=== PATIENT | male | born 1965 ===

== ENCOUNTER 2016-10-05 11:02 | Day surgery (SDC) | payer BC, OTHER ==
[2016-09-27 11:51] VITALS: BMI 38.7
[2016-10-05 11:33] VITALS: O2SAT 99
[2016-10-05] MEDS ORDERED: Lidocaine 2% Inj (20ml) ONE (11:51)
[2016-10-05] MEDS ORDERED: Propofol 10 mg/ml Inj (20 ML) ONE ×2 (11:51→12:00)
[2016-10-05] MEDS ORDERED: Lactated Ringer's 1,000 ML IV SCH (13:00)
[2016-10-05 13:14] VITALS: RESP 16
[2016-10-05 13:46] VITALS: BP 143/80; PULSE 59; TEMP 98.4
== END 2016-10-05 11:31 | disposition home or self-care (01) ==
LOC: ENDO 11:02
PROVIDERS: ATTEND Internal Medicine
DX: Z12.11 Encounter for screening for malignant neoplasm of colon (principal); K55.20 Angiodysplasia of colon without hemorrhage; D12.3 Benign neoplasm of transverse colon; I85.10 Secondary esophageal varices without bleeding; K29.70 Gastritis, unspecified, without bleeding; K64.8 Other hemorrhoids; K74.60 Unspecified cirrhosis of liver; E11.8 Type 2 diabetes mellitus with unspecified complications; I10 Essential (primary) hypertension; B19.20 Unspecified viral hepatitis C without hepatic coma
CPT/HCPCS: 43244; 45380; 82948; 88305; J2704; J3010; J7040; J7120

== ENCOUNTER 2016-10-13 18:39 | Inpatient (IN) | payer BC, OTHER ==
[2016-10-13 19:04] VITALS: BMI 32.3
[2016-10-13] MEDS ORDERED: Sodium Chloride 0.9% 500 ML IV STA (19:18)
--- NOTE | 2016-10-13 19:21 | ED PDOC ---
Arrival/HPI - General Chief Complaint: Fever Time Seen by Provider: 10/13/16 19:02 - History of Present Illness Narrative History of Present Illness (Text): 10/13/16 19:19 51 yo male, hx of hep c, htn, dm, cirrhosis, presents wtih fever. pt reports fever since yesterday. c/o of mild trinh, otherwise no c/o of cp, abd pain, n/v/d, urinary changes. pt reports had endoscopy last . Past Medical History - Provider Review Nursing Documentation Reviewed: Yes - Infectious Disease Hx of Infectious Diseases: None - Tetanus Immunization Tetanus Immunization: Unknown - Cardiac Hx Cardiac Disorders: Yes Hx Hypertension: Yes - Pulmonary Hx Respiratory Disorders: No - Neurological Hx Neurological Disorder: No - HEENT Hx HEENT Disorder: No - Renal Hx Renal Disorder: No - Endocrine/Metabolic Hx Diabetes Mellitus Type 2: Yes - Hematological/Oncological Hx Blood Transfusions: Yes Hx Blood Transfusion Reaction: No Hx Hepatitis C: Yes - Integumentary Hx Dermatological Disorder: No - Musculoskeletal/Rheumatological Hx Musculoskeletal Disorders: No - Gastrointestinal Hx Gastrointestinal Disorders: Yes Other/Comment: cirrhosis - Genitourinary/Gynecological Hx Genitourinary Disorders: No - Psychiatric Hx Emotional Abuse: No Hx Physical Abuse: No Hx Substance Use: No - Past Surgical History Past Surgical History: Non-Contributing - Anesthesia Hx Anesthesia: No Hx Anesthesia Reactions: No Hx Malignant Hyperthermia: No - Suicidal Assessment Feels Threatened In Home Enviroment: No Family/Social History - Physician Review Nursing Documentation Reviewed: Yes Family/Social History: Unknown Family HX Smoking Status: Former Smoker Hx Alcohol Use: No Hx Substance Use: No Hx Substance Use Treatment: No Allergies/Home Meds Allergies/Adverse Reactions: Allergies No Known Allergies Allergy (Verified 11/26/14 18:14) Home Medications: Home Meds Medication Instructions Recorded Confirmed GlipiZIDE SR [Glucotrol XL] 10 mg PO DAILY 09/27/16 10/05/16 Metoprolol Succinate XL [Toprol XL] 25 mg PO DAILY 09/27/16 10/05/16 Review of Systems - Review of Systems Constitutional: Fevers Eyes: Normal ENT: Normal Respiratory: Normal Cardiovascular: Normal Gastrointestinal: Normal Genitourinary Male: Normal Musculoskeletal: Normal Skin: Normal Neurological: Headache Endocrine: Normal Hemo/Lymphatic: Normal Psychiatric: Normal Physical Exam Vital Signs Temp Pulse Resp BP Pulse Ox 10/13/16 19:04 102.3 F H 66 16 156/77 H 97 Temperature: Febrile Blood Pressure: Hypertensive Pulse: Regular Respiratory Rate: Normal Appearance: Positive for: Well-Appearing, Non-Toxic, Comfortable, Other ( ambulating, awake, alert, in nad) Pain Distress: None Mental Status: Positive for: Alert and Oriented X 3 - Systems Exam Head: Present: Atraumatic, Normocephalic Pupils: Present: PERRL Extroacular Muscles: Present: EOMI Conjunctiva: Present: Normal Mouth: Present: Moist Mucous Membranes Neck: Present: Normal Range of Motion Respiratory/Chest: Present: Clear to Auscultation, Good Air Exchange. No: Respiratory Distress, Accessory Muscle Use Cardiovascular: Present: Regular Rate and Rhythm, Normal S1, S2. No: Murmurs Abdomen: Present: Normal Bowel Sounds. No: Tenderness, Distention, Peritoneal Signs Back: Present: Normal Inspection Upper Extremity: Present: Normal Inspection. No: Cyanosis, Edema Lower Extremity: Present: Normal Inspection. No: Edema Neurological: Present: GCS=15, CN II-XII Intact, Speech Normal, Motor Func Grossly Intact, Normal Sensory Function, Normal Cerebellar Funct Skin: Present: Warm, Dry, Normal Color. No: Rashes Psychiatric: Present: Alert, Oriented x 3, Normal Insight, Normal Concentration Medical Decision Making ED Course and Treatment: 10/13/16 19:21 will look for source of infection- labs imaging reassess. 10/13/16 20:09 ekg nsr [address] t wave changes normal intervals 10/13/16 20:24 noted leukopenia, pt empircally covered, differential pending 10/13/16 21:[address] mcdonald. requests hospitalist admission. joselito accepts. pt with leukopenia, worsening thromobcytopenia, needs iv antibiotics. - Lab Interpretations Lab Results: 10/13/16 19:50 10/13/16 19:50 Lab Results 10/13/16 19:50: WBC 2.2 L*, RBC 4.18, Hgb 8.6 L, Hct 29.4 L, MCV 70.3 L, MCH 20.6 L, MCHC 29.3 L, RDW 18.5 H, Plt Count 47 L*, Neutrophils % (Manual) 73 H, Band Neutrophils % [employer], Lymphocytes % (Manual) 16 L, Monocytes % (Manual) 10 H, Eosinophils % (Manual) 1, Giant Platelets Present, Hypochromasia 2+, Anisocytosis (manual) 1+, PT 13.4 H, INR 1.24 H, APTT 26.9, pO2 158 H, VBG pH 7.40, VBG pCO2 39.0 L, VBG HCO3 24.2, VBG Total CO2 25.4, VBG O2 Sat (Calc) 99.7 H, VBG Base Excess -0.5 L, VBG Potassium 4.1, Glucose 290 H, Lactate 1.6, FiO2 21.0, Sodium 135.0, Potassium 4.0, Chloride 107.0, Carbon Dioxide 25, Anion Gap 12, BUN 16, Creatinine 0.7, Est GFR ( Amer) > 60, Est GFR (Non- Af Amer) > 60, Random Glucose 275 H, Calcium 8.6, Magnesium 1.9, Total Bilirubin 0.9, AST 36, ALT 40, Alkaline Phosphatase 45, Lactate Dehydrogenase 576, Total Creatine Kinase 74, Troponin I < 0.01, Total Protein 7.2, Albumin 3.4 , Globulin 3.8, Albumin/Globulin Ratio 0.9 L, Venous Blood Potassium 4.1, Urine Color Yellow, Urine Appearance Clear, Urine pH 6.0, Ur Specific [place] 1.025, Urine Protein Trace H, Urine Glucose (UA) 500 H, Urine Ketones Trace H, Urine Blood Negative, Urine Nitrate Negative, Urine Bilirubin Negative, Urine Urobilinogen 0.2, Ur Leukocyte Esterase Negative, Urine RBC 0 - 2, Urine WBC 0 - 2, Influenza Typ A,B (EIA) Negative for flu a/b - RAD Interpretation Radiology Orders: 10/13/16 19:18 CHEST PORTABLE [RAD] Stat - Medication Orders Current Medication Orders: Vancomycin HCl (Vancomycin 1gm) 250 mls @ 167 mls/hr IVPB STAT STA PRN Reason: Protocol Stop: 10/13/16 21:50 Discontinued Medications Acetaminophen (Tylenol 325mg Tab) 650 mg PO STAT STA Stop: 10/13/16 19:19 Last Admin: 10/13/16 20:01 Dose: 650 MG Sodium Chloride (Sodium Chloride 0.9%) 500 mls @ 999 mls/hr IV .Q31M STA Stop: 10/13/16 19:48 Last Admin: 10/13/16 20:01 Dose: 999 MLS/HR eMAR Start Stop Document 10/13/16 20:01 SF (Rec: 10/13/16 20:01 SF [id number]) Intravenous Solution Start Date 10/13/16 Start Time 19:50 End Date 10/13/16 End time 20:20 Total Infusion Time 30 Piperacillin Sod/Tazobactam Sod (Zosyn 3.375 In Ns 100ml) 100 mls @ 200 mls/hr IVPB STAT STA PRN Reason: Protocol Stop: 10/13/16 20:50 Last Admin: 10/13/16 21:00 Dose: 200 MLS/HR eMAR Start Stop Document 10/13/16 21:00 SF (Rec: 10/13/16 21:01 [id number] Intravenous Solution Start Date 10/13/16 Start Time 21:01 End Date 10/13/16 End time 21:31 Total Infusion Time 30 Disposition/Present on Arrival - Present on Arrival Any Indicators Present on Arrival: No History of DVT/PE: No History of Uncontrolled Diabetes: No Urinary Catheter: No History of Decub. Ulcer: No History Surgical Site Infection Following: None - Disposition Have Diagnosis and Disposition been Completed?: Yes Diagnosis: Sepsis, Leukopenia, Thrombocytopenia Disposition: HOSPITALIZED Disposition Time: 21:22 Condition: STABLE Discharge Instructions (ExitCare): Sepsis (ED)
[2016-10-13 20:11] LABS: VENOUS BLOOD GAS BASE EXCESS -0.5 mmol/L (0.0-2.0)
[2016-10-13 20:16] LABS: HEMATOCRIT 29.4 % (42.0-52.0); MEAN CELL VOLUME 70.3 fL (80.0-105.0); MEAN CORPUSCULAR HEMOGLOBIN 20.6 pg (25.0-35.0); MEAN CORPUSCULAR HGB CONC 29.3 g/dl (31.0-37.0); RED CELL DISTRIBUTION WIDTH 18.5 % (11.5-14.5)
[2016-10-13 20:18] LABS: ADD MANUAL DIFF? YES; URINE BILIRUBIN NEGATIVE (NEGATIVE); URINE BLOOD NEGATIVE (NEGATIVE); URINE GLUCOSE (UA) 500 mg/dL (NEGATIVE); URINE KETONE TRACE mg/dL (NEGATIVE); URINE LEUKOCYTE ESTERASE NEGATIVE Leu/uL (NEGATIVE); URINE PROTEIN TRACE mg/dL (<30 mg/dL); URINE UROBILINOGEN 0.2 E.U./dL (<1 E.U./dL)
[2016-10-13 20:20] LABS: PLATELET COUNT 47 10^3/uL (120.0-450.0); WHITE BLOOD COUNT 2.2 10^3/ul (4.5-11.0)
[2016-10-13] MEDS ORDERED: Vancomycin 1gm in NS 250ml 250 ML IVPB STA (20:21)
[2016-10-13] MEDS ORDERED: Piperacillin/Tazobact 3.375 gm 100 ML IVPB STA (20:21)
[2016-10-13 20:22] LABS: URINE APPEARANCE CLEAR (CLEAR); URINE COLOR YELLOW (YELLOW)
[2016-10-13 20:23] LABS: INR 1.24 (0.93-1.08); PARTIAL THROMBOPLASTIN TIME 26.9 Seconds (23.7-30.8)
[2016-10-13 20:24] LABS: ALB/GLOB RATIO 0.9 (1.1-1.8); ALKALINE PHOSPHATASE 45 U/L (38-133); ALT/SGPT 40 U/L (7-56); AST/SGOT 36 U/L (15-59); BILIRUBIN,TOTAL 0.9 mg/dL (0.2-1.3); BLOOD UREA NITROGEN 16 mg/dL (7-21); CALCIUM 8.6 mg/dL (8.4-10.5); CARBON DIOXIDE 25 mmol/L (21-33); CHLORIDE 101 mmol/L (98-107); GFR AFRICAN-AMERICAN > 60; GLUCOSE,RANDOM 275 mg/dL (70-110); MAGNESIUM 1.9 mg/dL (1.7-2.2); SODIUM 134 mmol/L (132-148); TOTAL PROTEIN 7.2 g/dL (5.8-8.3)
[2016-10-13 20:36] LABS: TROPONIN I < 0.01 ng/mL
[2016-10-13 20:43] LABS: URINE RBC 0 - 2 /hpf (0-2); URINE WBC 0 - 2 /hpf (0-6)
[2016-10-13 21:03] LABS: NEUTROPHIL 73 % (50.0-70.0)
[2016-10-13 21:04] LABS: ANISOCYTOSIS 1+; EOSINOPHIL 1 % (0.0-3.0)
[2016-10-13 21:05] LABS: GIANT PLATELETS PRESENT
[2016-10-13 21:07] LABS: HYPOCHROMIA 2+
--- NOTE | 2016-10-13 22:11 | CP.PCM.HP ---
<Claribel Mario - Last Filed: 10/13/16 23:29> History of Present Illness - History of Present Illness History of Present Illness: This is a 51Y Dominican M with PMH of HTN, DM, Hep C s/p tx with Harvoni, esophageal varcies, hypersplenism who came to the ED with fever for the past 3 days. Patient does not speak Moroccan. Daughter is at bedside to translate. He has been having subjective fevers and chills for the past 3 days. He denies sick contacts or recent travel. He does not have any pain, cough, n/v/d, SOB, CP , rash, lesions or sore throat. He says he has a good appetite as well and has not noticed any weight loss. It is noted that he did have an EGD and colonoscopy 1 week ago. He did have a polyp removed during the colonoscopy. PMH: HTN, DM, Hep C s/p tx with Harvoni, hypersplenism, pancytopenia, cirrhosis PSH: Banding in esophagus Home meds: Propranolol 20mg TID, Carvedilol 6.25 BID, Glipizide 10mg q daily All: NKDA SH: Former smoker. Denies EtOH or drug use, lives with family FH: Prostate Cancer Present on Admission - Present on Admission Any Indicators Present on Admission: No Review of Systems - Review of Systems Review of Systems: As per HPI Past Patient History - Infectious Disease Hx of Infectious Diseases: None - Tetanus Immunizations Tetanus Immunization: Unknown - Past Social History Smoking Status: Former Smoker Alcohol: None Drugs: Denies Home Situation {Lives}: With Family - CARDIAC Hx Cardiac Disorders: Yes Hx Hypertension: Yes - PULMONARY Hx Respiratory Disorders: No - NEUROLOGICAL Hx Neurological Disorder: No - HEENT Hx HEENT Problems: No - RENAL Hx Chronic Kidney Disease: No - ENDOCRINE/METABOLIC Hx Diabetes Mellitus Type 2: Yes - HEMATOLOGICAL/ONCOLOGICAL Hx Blood Transfusions: Yes Hx Blood Transfusion Reaction: No Hx Hepatitis C: Yes - INTEGUMENTARY Hx Dermatological Problems: No - MUSCULOSKELETAL/RHEUMATOLOGICAL Hx Musculoskeletal Disorders: No - GASTROINTESTINAL Hx Gastrointestinal Disorders: Yes Other/Comment: cirrhosis - GENITOURINARY/GYNECOLOGICAL Hx Genitourinary Disorders: No - PSYCHIATRIC Hx Emotional Abuse: No Hx Physical Abuse: No Hx Substance Use: No - SURGICAL HISTORY Hx Surgeries: Yes - ANESTHESIA Hx Anesthesia: No Hx Anesthesia Reactions: No Hx Malignant Hyperthermia: No Meds Allergies/Adverse Reactions: Allergies Allergy/AdvReac Type Severity Reaction Status Date / Time No Known Allergies Allergy Verified 11/26/14 18:14 Physical Exam - Constitutional Appears: No Acute Distress - Head Exam Head Exam: ATRAUMATIC, NORMAL INSPECTION, NORMOCEPHALIC - Eye Exam Eye Exam: Normal appearance, PERRL Pupil Exam: NORMAL ACCOMODATION, PERRL - ENT Exam ENT Exam: Mucous Membranes Moist - Neck Exam Neck exam: Positive for: Normal Inspection - Respiratory Exam Respiratory Exam: Clear to Auscultation Bilateral, NORMAL BREATHING PATTERN. absent: Rales, Rhonchi, Wheezes, Stridor - Cardiovascular Exam Cardiovascular Exam: REGULAR RHYTHM, +S1, +S2. absent: Gallop, Rubs, Systolic Murmur - GI/Abdominal Exam GI & Abdominal Exam: Distended, Normal Bowel Sounds, Organomegaly (splenomegaly ), Soft. absent: Rebound, Rigid, Tenderness - Extremities Exam Extremities exam: Positive for: normal inspection. Negative for: calf tenderness, pedal edema - Neurological Exam Neurological exam: Alert, CN II-XII Intact - Psychiatric Exam Psychiatric exam: Normal Affect, Normal Mood - Skin Skin Exam: Dry, Intact, Normal Color, Warm Results - Vital Signs Recent Vital Signs: Last Vital Signs Temp 102.3 F H 10/13/16 19:04 Pulse 66 10/13/16 19:04 Resp 16 10/13/16 19:04 BP 156/77 H 10/13/16 19:04 Pulse Ox 97 10/13/16 19:04 - Labs Result Diagrams: 10/13/16 19:50 10/13/16 19:50 Assessment & Plan - Assessment and Plan (Free Text) Assessment: This is a 51Y M with PMH of HTN, DM, Hep C, Hypersplenism, pancytopenia, cirrhosis admitted for fever. Plan: 1. Fever - CXR showed no active disease - Blood culture pending - PCT pending - U/A negative - Lactate 1.6 - Rapid flu negative - Zosyn - Tylenol prn fever 2. Pancytopenia - Can be secondary to hypersplenism - Will check iron studies and folate - Continue to monitor 3. DM - Continue glipizide - BGM ACHS - Consider adding ISS if glucose not controlled 4. HTN - Stop Carvedilol - Continue Propranolol TID - Consider increasing propranolol instead of being on 2 beta chester as out patient GI ppx: Protonix DVT ppx: SCDs Case seen, reviewed and discussed with attending Medina Mario PGY1 - Date & Time Date: 10/14/16 Time: 00:00 <Melchor Stuart P - Last Filed: 10/22/16 20:18> Results - Vital Signs Recent Vital Signs: Last Vital Signs Temp 98.3 F 10/17/16 06:00 Pulse 56 L 10/17/16 10:47 Resp 18 10/17/16 06:00 BP 156/86 H 10/17/16 10:47 Pulse Ox 100 10/17/16 06:00 - Labs Result Diagrams: 10/17/16 06:15 10/17/16 06:15 Attending/Attestation - Attestation I have personally seen and examined this patient.: Yes I have fully participated in the care of the patient.: Yes I have reviewed all pertinent clinical information: Yes
[2016-10-13 22:42] LABS: IRON 28 ug/dL (45-180)
[2016-10-14] MEDS: Piperacillin/Tazobact 3.375 gm 100 ML IVPB SCH ×4 (02:24→18:30)
[2016-10-14] MEDS ORDERED: Pantoprazole 40 mg EC Tab PO SCH (07:30)
[2016-10-14] MEDS ORDERED: GlipiZIDE 10 mg SR Tab PO SCH (08:00)
[2016-10-14 09:44] LABS: HEMATOCRIT 30.3 % (42.0-52.0); MEAN CELL VOLUME 70.8 fL (80.0-105.0); MEAN CORPUSCULAR HGB CONC 29.7 g/dl (31.0-37.0); PLATELET COUNT 44 10^3/uL (120.0-450.0); RED CELL DISTRIBUTION WIDTH 18.8 % (11.5-14.5)
[2016-10-14 09:50] LABS: WHITE BLOOD COUNT 2.2 10^3/ul (4.5-11.0)
[2016-10-14 09:56] LABS: ALB/GLOB RATIO 0.9 (1.1-1.8); ALKALINE PHOSPHATASE 52 U/L (38-133); ALT/SGPT 37 U/L (7-56); AST/SGOT 43 U/L (15-59); CALCIUM 8.4 mg/dL (8.4-10.5); CARBON DIOXIDE 25 mmol/L (21-33); CHLORIDE 102 mmol/L (95-110); GFR AFRICAN-AMERICAN > 60; GLUCOSE,RANDOM 237 mg/dL (70-110); SODIUM 135 mmol/L (132-148); TOTAL PROTEIN 6.9 g/dL (5.8-8.3)
[2016-10-14 10:11] LABS: BLOOD UREA NITROGEN 11 mg/dL (7-21)
--- NOTE | 2016-10-14 10:41 | RAD ---
HISTORY: fever COMPARISON: Comparison chest 07/19/2016 FINDINGS: LUNGS: No active pulmonary disease. PLEURA: No significant pleural effusion identified, no pneumothorax apparent. CARDIOVASCULAR: Mild cardiomegaly with left ventricular configuration. OSSEOUS STRUCTURES: No significant abnormalities. VISUALIZED UPPER ABDOMEN: Normal. OTHER FINDINGS: None. IMPRESSION: No acute infiltrates. Mild cardiomegaly with left ventricular configuration. .
[2016-10-14] MEDS: Vancomycin 1gm in NS 250ml 250 ML IVPB SCH ×2 (10:55→21:54)
[2016-10-14 11:02] LABS: FOLATE 13.2 ng/mL
--- NOTE | 2016-10-14 11:30 | CARD ---
APPROVED REPORT EKG Measurement Heart [id number] <Conclusion> Normal sinus rhythm Normal ECG
[2016-10-14 11:35] LABS: ADD MANUAL DIFF? YES
[2016-10-14 11:37] LABS: BAND 2 % (0-2); HYPOCHROMIA 1+; NEUTROPHIL 74 % (50.0-70.0); PLATELET ESTIMATE LOW (NORMAL)
[2016-10-14 11:38] LABS: ANISOCYTOSIS 1+; LARGE PLATELETS PRESENT
[2016-10-14 11:39] LABS: GRAN # 1.67 (1.4-6.5)
--- NOTE | 2016-10-14 14:41 | CP.PCM.PN ---
<Nnamdi Christy - Last Filed: 10/14/16 14:37> Subjective - Date & Time of Evaluation Date of Evaluation: 10/14/16 Time of Evaluation: 08:30 - Subjective Subjective: Dr. Christy PGY 1 Hospitalist Note Patient seen and evaluated at bedside with family present. The patient states he has had a fever for about 3 days and has been waking with sweats in the morning. He denies any chest pain, SOB, nausea, vomiting, diarrhea, or abdominal pain. Per nursing, the patient had a fever early this morning. Objective - Vital Signs/Intake and Output Vital Signs (last 24 hours): Temp Pulse Resp BP Pulse Ox 99.6 F 74 20 151/72 H 97 10/14/16 10:57 10/14/16 06:00 10/14/16 06:00 10/14/16 10:55 10/14/16 06:00 Intake and Output: 10/14/16 10/14/16 06:59 18:59 Intake Total 120 Balance 120 - Medications Medications: Current Medications Acetaminophen (Tylenol 325mg Tab) 650 mg PO Q6H PRN PRN Reason: Pain Last Admin: 10/14/16 04:31 Dose: 650 mg Piperacillin Sod/Tazobactam Sod (Zosyn 3.375 In Ns 100ml) 100 mls @ 200 mls/hr IVPB Q6 PRAVEENA PRN Reason: Protocol Stop: 10/14/16 18:29 Last Admin: 10/14/16 12:54 Dose: 200 mls/hr Vancomycin HCl (Vancomycin 1gm) 250 mls @ 167 mls/hr IVPB Q12H PRAVEENA PRN Reason: Protocol Last Admin: 10/14/16 10:55 Dose: 167 mls/hr Insulin Human Lispro (Humalog Low) 0 units SC ACHS PRAVEENA PRN Reason: Protocol Pantoprazole Sodium (Protonix Ec Tab) 40 mg PO ACB PRAVEENA Last Admin: 10/14/16 08:09 Dose: 40 mg Propranolol HCl (Inderal) 20 mg PO TID PRAVEENA Last Admin: 10/14/16 10:55 Dose: 20 mg - Labs Labs: 10/14/16 09:38 10/14/16 09:38 PT 13.4 Seconds (9.9-11.8) H 10/13/16 19:50 INR 1.24 (0.93-1.08) H 10/13/16 19:50 APTT 26.9 Seconds (23.7-30.8) 10/13/16 19:50 - Constitutional Appears: Non-toxic, No Acute Distress - Head Exam Head Exam: ATRAUMATIC, NORMOCEPHALIC - Eye Exam Eye Exam: EOMI, Normal appearance, PERRL Pupil Exam: NORMAL ACCOMODATION, PERRL - ENT Exam ENT Exam: Mucous Membranes Moist, Normal Oropharynx - Neck Exam Neck Exam: Normal Inspection - Respiratory Exam Respiratory Exam: Clear to Ausculation Bilateral, NORMAL BREATHING PATTERN. absent: Rales, Rhonchi, Wheezes - Cardiovascular Exam Cardiovascular Exam: REGULAR RHYTHM, +S1, +S2. absent: Gallop, Rubs, Murmur - GI/Abdominal Exam GI & Abdominal Exam: Soft, Normal Bowel Sounds. absent: Tenderness - Extremities Exam Extremities Exam: Normal Inspection. absent: Pedal Edema, Tenderness - Back Exam Back Exam: NORMAL INSPECTION. absent: tenderness - Neurological Exam Neurological Exam: Alert, Awake, CN II-XII Intact, Oriented x3 - Psychiatric Exam Psychiatric exam: Normal Affect, Normal Mood - Skin Skin Exam: Dry, Intact, Normal Color Assessment and Plan - Assessment and Plan (Free Text) Assessment: 51 y/o Brazilian M with PMH of HTN, DM, Hep C, Hypersplenism, pancytopenia, cirrhosis admitted for fever and pancytopenia. Plan: 1. Fever * ID consulted, help appreciated * CXR showed no active disease * Lactate 1.6 * Rapid flu negative * Procal wnl * F/U blood and urine cultres * Started on Vancomycin and Zosyn * Tylenol prn fever 2. Pancytopenia * Possibly secondary to hypersplenism * Iron studies show Iron 28, TIBC 374, 7% sat * Folate- 13.2 * Continue to monitor 3. DM * Hold home glipizide * Accuchecks ACHS * Sliding scale insulin * F/U A1C 4. HTN * BP wnl * Home Carvedilol D/C's * Continue Propranolol TID * Consider increasing propranolol instead of being on 2 beta chester as out patient GI ppx: Protonix DVT ppx: SCDs Case seen, reviewed and discussed with attending <Ubaldo Lyles - Last Filed: 10/14/16 15:33> Objective - Vital Signs/Intake and Output Vital Signs (last 24 hours): Temp Pulse Resp BP Pulse Ox 99.6 F 74 20 151/72 H 97 10/14/16 10:57 10/14/16 06:00 10/14/16 06:00 10/14/16 10:55 10/14/16 06:00 Intake and Output: 10/14/16 10/14/16 06:59 18:59 Intake Total 120 Balance 120 - Medications Medications: Current Medications Acetaminophen (Tylenol 325mg Tab) 650 mg PO Q6H PRN PRN Reason: Pain Last Admin: 10/14/16 04:31 Dose: 650 mg Piperacillin Sod/Tazobactam Sod (Zosyn 3.375 In Ns 100ml) 100 mls @ 200 mls/hr IVPB Q6 PRAVEENA PRN Reason: Protocol Stop: 10/14/16 18:29 Last Admin: 10/14/16 12:54 Dose: 200 mls/hr Vancomycin HCl (Vancomycin 1gm) 250 mls @ 167 mls/hr IVPB Q12H PRAVEENA PRN Reason: Protocol Last Admin: 10/14/16 10:55 Dose: 167 mls/hr Insulin Human Lispro (Humalog Low) 0 units SC ACHS PRAVEENA PRN Reason: Protocol Pantoprazole Sodium (Protonix Ec Tab) 40 mg PO ACB PRAVEENA Last Admin: 10/14/16 08:09 Dose: 40 mg Propranolol HCl (Inderal) 20 mg PO TID PRAVEENA Last Admin: 10/14/16 10:55 Dose: 20 mg - Labs Labs: 10/14/16 09:38 10/14/16 09:38 PT 13.4 Seconds (9.9-11.8) H 10/13/16 19:50 INR 1.24 (0.93-1.08) H 10/13/16 19:50 APTT 26.9 Seconds (23.7-30.8) 10/13/16 19:50 Attending/Attestation - Attestation I have personally seen and examined this patient.: Yes I have fully participated in the care of the patient.: Yes I have reviewed all pertinent clinical information, including history, physical exam and plan: Yes Notes (Text): 10/14/16 15:24 51 year old male with past medical history of HTN, DM, hepatitis C, cirrhosis, esophageal varices and pancytopenia who presented with complaint of fever. CXR and UA are negative. Procalcitonin is normal. Ucx/Bcx are pending. He is on iv antibiotics. Tmax was 102.9. ID evaluation was requested. He has pancytopenia and iron deficiency anemia. May need iron supplementation. Will continue to monitor closely. Will review his recent EGD/colonoscopy. Continue with insulin ss for diabetes. A1c level is pending. He is on propranolol for hypertension. Ubaldo Lyles MD Hospitalist.
[2016-10-14] MEDS: Insulin Lispro (humaLOG) LOW Coverage SC SCH ×2 (16:30→22:00)
--- NOTE | 2016-10-14 18:27 | CP.PCM.CON ---
History of Present Illness - History of Present Illness History of Present Illness: Infectious Disease Consultation: October 14, 2016 51 yo [place] male with Hypertension, Diabetes Mellitus, Hepatitis C, Esophageal Varices, and hypersplenism with fevers for the past 3 days. Subjective fevers and chills. No other specific issues. Fever of 102.9 F here in hospital. PMHx: Hypertension, Diabetes Mellitus, Heptitis C treated with Harvoni, hypersplenism , pancytopenia, cirrhosis PSHx: Banding in esophagus Allergies: NKDA Social Hx: Ex-smoker. No EtOH or illicit drug use history. lives with family Active Medications Acetaminophen (Tylenol 325mg Tab) 650 mg PO Q6H PRN PRN Reason: Pain Last Admin: 10/14/16 04:31 Dose: 650 mg Famotidine (Pepcid) 20 mg PO 1000,2200 [facility] Piperacillin Sod/Tazobactam Sod (Zosyn 3.375 In Ns 100ml) 100 mls @ 200 mls/hr IVPB Q6 [facility] PRN Reason: Protocol Stop: 10/14/16 18:29 Last Admin: 10/14/16 12:54 Dose: 200 mls/hr Vancomycin HCl (Vancomycin 1gm) 250 mls @ 167 mls/hr IVPB Q12H [facility] PRN Reason: Protocol Last Admin: 10/14/16 10:55 Dose: 167 mls/hr Insulin Human Lispro (Humalog Low) 0 units SC ACHS [facility] PRN Reason: Protocol Last Admin: 10/14/16 16:30 Dose: 5 units Propranolol HCl (Inderal) 20 mg PO TID [facility] Last Admin: 10/14/16 14:36 Dose: 20 mg Family Hx: Prostate cancer ROS: Subjective fevers, actual fever of 102.9. No cough, chest pain, abdominal pain , melena, hematuria, hematemesis, hematochezia, depression, anxiety, loss of consciousness. Past Patient History - Infectious Disease Hx of Infectious Diseases: None - Tetanus Immunizations Tetanus Immunization: Unknown - Past Social History Smoking Status: Never Smoked - CARDIAC Hx Cardiac Disorders: Yes Hx Hypertension: Yes - PULMONARY Hx Respiratory Disorders: No - NEUROLOGICAL Hx Neurological Disorder: No - HEENT Hx HEENT Problems: No - RENAL Hx Chronic Kidney Disease: No - ENDOCRINE/METABOLIC Hx Diabetes Mellitus Type 2: Yes - HEMATOLOGICAL/ONCOLOGICAL Hx Blood Transfusions: Yes Hx Blood Transfusion Reaction: No Hx Hepatitis C: Yes - INTEGUMENTARY Hx Dermatological Problems: No - MUSCULOSKELETAL/RHEUMATOLOGICAL Hx Falls: No - GASTROINTESTINAL Hx Gastrointestinal Disorders: Yes Other/Comment: cirrhosis - GENITOURINARY/GYNECOLOGICAL Hx Genitourinary Disorders: No - PSYCHIATRIC Hx Emotional Abuse: No Hx Physical Abuse: No Hx Substance Use: No - SURGICAL HISTORY Hx Surgeries: Yes - ANESTHESIA Hx Anesthesia: No Hx Anesthesia Reactions: No Hx Malignant Hyperthermia: No Meds Allergies/Adverse Reactions: Allergies Allergy/AdvReac Type Severity Reaction Status Date / Time No Known Allergies Allergy Verified 11/26/14 18:14 - Medications Medications: Current Medications Acetaminophen (Tylenol 325mg Tab) 650 mg PO Q6H PRN PRN Reason: Pain Last Admin: 10/14/16 04:31 Dose: 650 mg Famotidine (Pepcid) 20 mg PO 1000,2200 [facility] Piperacillin Sod/Tazobactam Sod (Zosyn 3.375 In Ns 100ml) 100 mls @ 200 mls/hr IVPB Q6 [facility] PRN Reason: Protocol Stop: 10/14/16 18:29 Last Admin: 10/14/16 12:54 Dose: 200 mls/hr Vancomycin HCl (Vancomycin 1gm) 250 mls @ 167 mls/hr IVPB Q12H [facility] PRN Reason: Protocol Last Admin: 10/14/16 10:55 Dose: 167 mls/hr Insulin Human Lispro (Humalog Low) 0 units SC ACHS [facility] PRN Reason: Protocol Last Admin: 10/14/16 16:30 Dose: 5 units Propranolol HCl (Inderal) 20 mg PO TID [facility] Last Admin: 10/14/16 14:36 Dose: 20 mg Physical Exam - Constitutional Appears: No Acute Distress, Chronically Ill - Head Exam Head Exam: ATRAUMATIC, NORMOCEPHALIC - Eye Exam Eye Exam: EOMI, PERRL Pupil Exam: NORMAL ACCOMODATION, PERRL - ENT Exam ENT Exam: Mucous Membranes Moist, Normal External Ear Exam, TM's Normal Bilaterally - Neck Exam Neck exam: Positive for: Full Rom, Normal Inspection - Respiratory Exam Respiratory Exam: Clear to Auscultation Bilateral, NORMAL BREATHING PATTERN. absent: Rales, Rhonchi, Wheezes - Cardiovascular Exam Cardiovascular Exam: REGULAR RHYTHM, RRR, +S1, +S2 - GI/Abdominal Exam GI & Abdominal Exam: Distended, Normal Bowel Sounds, Organomegaly, Soft. absent : Tenderness Additional comments: Splenomegaly. - Extremities Exam Extremities exam: Positive for: full ROM, normal inspection - Neurological Exam Neurological exam: Alert, CN II-XII Intact, Oriented x3 - Psychiatric Exam Psychiatric exam: Normal Affect, Normal Mood - Skin Skin Exam: Dry, Intact, Normal Color Results - Vital Signs Recent Vital Signs: Last Vital Signs Temp 99.6 F 10/14/16 10:57 Pulse 74 10/14/16 06:00 Resp 20 10/14/16 06:00 BP 151/72 H 10/14/16 10:55 Pulse Ox 97 10/14/16 06:00 - Labs Result Diagrams: 10/14/16 09:38 10/14/16 09:38 Labs: Laboratory Results - last 24 hr 10/13/16 10/13/16 10/14/16 22:30 23:15 09:38 WBC 2.2 L* RBC 4.28 Hgb 9.0 L Hct 30.3 L MCV 70.8 L MCH 21.0 L MCHC 29.7 L RDW 18.8 H Plt Count 44 L* Gran % Elevator Worker Lymph % (Auto) Elevator Worker Morton % (Auto) Elevator Worker Eos % (Auto) Elevator Worker Baso % (Auto) Elevator Worker Gran # 1.67 Lymph # Elevator Worker Morton # Elevator Worker Eos # Elevator Worker Baso # Elevator Worker Neutrophils % (Manual) 74 H Band Neutrophils % 2 Lymphocytes % (Manual) 18 L Monocytes % (Manual) 6 Platelet Evaluation Low Large Platelets Present Hypochromasia 1+ Anisocytosis (manual) 1+ Sodium 135 Potassium 4.0 Chloride 102 Carbon Dioxide 25 Anion Gap 12 BUN 11 Creatinine 0.6 Est GFR ( Amer) > 60 Est GFR (Non-Af Amer) > 60 POC Glucose (mg/dL) 173 H Random Glucose 237 H Calcium 8.4 Total Bilirubin 1.0 AST 43 ALT 37 Alkaline Phosphatase 52 Total Protein 6.9 Albumin 3.3 Globulin 3.6 Albumin/Globulin Ratio 0.9 L Procalcitonin 0.08 L Influenza Typ A,B (EIA) Negative for flu a/b Assessment & Plan - Assessment and Plan (Free Text) Assessment: 51 yo [place] male with extensive past medical history with hypertension, diabetes mellitus, Heptitis C, hypersplenism, pancytopenia, and cirrhosis presenting with fevers. Fevers up to 102.9 F. Chest X-ray negative, Urinalysis negative, and negative rapid flu assay. Patient started on Vancomycin and Zosyn at this time. King cultures sent. Patient is more vulnerable given his liver cirrhosis, poorly controlled diabetes mellitus, and obesity. Continue antibiotics and await cultures. Cannot rule out a viral syndrome. Thank you for allowing me to participate in the care of the patient, we will follow with you.
[2016-10-15] MEDS: Piperacillin/Tazobact 3.375 gm 100 ML IVPB SCH ×4 (00:07→17:00)
[2016-10-15 07:35] LABS: HEMATOCRIT 28.8 % (42.0-52.0); MEAN CELL VOLUME 70.4 fL (80.0-105.0); MEAN CORPUSCULAR HEMOGLOBIN 21.3 pg (25.0-35.0); MEAN CORPUSCULAR HGB CONC 30.2 g/dl (31.0-37.0); PLATELET COUNT 42 10^3/uL (120.0-450.0); RED CELL DISTRIBUTION WIDTH 19.5 % (11.5-14.5)
[2016-10-15 07:55] LABS: ADD MANUAL DIFF? YES; ALB/GLOB RATIO 0.9 (1.1-1.8); ALKALINE PHOSPHATASE 51 U/L (38-133); ALT/SGPT 43 U/L (7-56); AST/SGOT 42 U/L (15-59); BLOOD UREA NITROGEN 13 mg/dL (7-21); CALCIUM 7.8 mg/dL (8.4-10.5); CARBON DIOXIDE 24 mmol/L (21-33); CHLORIDE 104 mmol/L (98-107); GFR AFRICAN-AMERICAN > 60; GLUCOSE,RANDOM 255 mg/dL (70-110); POTASSIUM 3.7 mmol/L (3.6-5.0); SODIUM 134 mmol/L (132-148); TOTAL PROTEIN 6.7 g/dL (5.8-8.3); WHITE BLOOD COUNT 2.2 10^3/ul (4.5-11.0)
[2016-10-15] MEDS: Insulin Lispro (humaLOG) LOW Coverage SC SCH ×5 (08:25→22:02)
[2016-10-15 08:50] LABS: BAND 3 % (0-2); GRAN # 1.41 (1.4-6.5); NEUTROPHIL 61 % (50.0-70.0)
[2016-10-15 08:51] LABS: LARGE PLATELETS PRESENT; PLATELET ESTIMATE LOW (NORMAL)
[2016-10-15] MEDS: Vancomycin 1gm in NS 250ml 250 ML IVPB SCH (08:59)
--- NOTE | 2016-10-15 15:10 | CP.PCM.PN ---
Subjective - Date & Time of Evaluation Date of Evaluation: 10/15/16 Time of Evaluation: 13:30 - Subjective Subjective: Infectious Disease Follow Up: October 15, 2016 51 yo [place] male with Hypertension, Diabetes Mellitus, Hepatitis C, Esophageal Varices, and hypersplenism with fevers for the past 3 days. Subjective fevers and chills. No other specific issues. Fever as high as 102.9 F here in hospital during the past 24 hours. Cultures negative to date. He makes no other complaints. Objective - Vital Signs/Intake and Output Vital Signs (last 24 hours): Temp Pulse Resp BP Pulse Ox 100.5 F H 59 L 20 145/77 97 10/15/16 14:14 10/15/16 14:13 10/14/16 06:00 10/15/16 14:13 10/14/16 06:00 Intake and Output: 10/15/16 10/15/16 06:59 18:59 Intake Total 750 Balance 750 - Medications Medications: Current Medications Acetaminophen (Tylenol 325mg Tab) 650 mg PO Q6H PRN PRN Reason: Pain Last Admin: 10/15/16 14:14 Dose: 650 mg Famotidine (Pepcid) 20 mg PO 1000,2200 [facility] Last Admin: 10/15/16 09:00 Dose: 20 mg Vancomycin HCl (Vancomycin 1gm) 250 mls @ 167 mls/hr IVPB Q12H [facility] PRN Reason: Protocol Last Admin: 10/15/16 08:59 Dose: 167 mls/hr Piperacillin Sod/Tazobactam Sod (Zosyn 3.375 In Ns 100ml) 100 mls @ 200 mls/hr IVPB Q6 [facility] PRN Reason: Protocol Stop: 10/20/16 06:29 Last Admin: 10/15/16 12:14 Dose: 200 mls/hr Insulin Human Lispro (Humalog Low) 0 units SC ACHS [facility] PRN Reason: Protocol Last Admin: 10/15/16 13:04 Dose: 3 units Propranolol HCl (Inderal) 20 mg PO TID [facility] Last Admin: 10/15/16 14:13 Dose: Not Given - Labs Labs: 10/15/16 07:05 10/15/16 07:05 PT 13.4 Seconds (9.9-11.8) H 10/13/16 19:50 INR 1.24 (0.93-1.08) H 10/13/16 19:50 APTT 26.9 Seconds (23.7-30.8) 10/13/16 19:50 - Constitutional Appears: No Acute Distress, Chronically Ill - Head Exam Head Exam: ATRAUMATIC, NORMOCEPHALIC - Eye Exam Eye Exam: EOMI, PERRL Pupil Exam: NORMAL ACCOMODATION, PERRL - ENT Exam ENT Exam: Mucous Membranes Moist, Normal External Ear Exam, TM's Normal Bilaterally - Neck Exam Neck Exam: Full ROM, Normal Inspection - Respiratory Exam Respiratory Exam: Clear to Ausculation Bilateral, NORMAL BREATHING PATTERN. absent: Rales, Rhonchi, Wheezes - Cardiovascular Exam Cardiovascular Exam: REGULAR RHYTHM, RRR, +S1, +S2 - GI/Abdominal Exam GI & Abdominal Exam: Distended, Soft, Normal Bowel Sounds. absent: Tenderness Additional comments: Splenomegaly. - Extremities Exam Extremities Exam: Full ROM, Normal Inspection - Neurological Exam Neurological Exam: Alert, Awake, CN II-XII Intact, Oriented x3 - Psychiatric Exam Psychiatric exam: Normal Affect, Normal Mood - Skin Skin Exam: Intact, Normal Color Assessment and Plan - Assessment and Plan (Free Text) Assessment: 51 yo [place] male with extensive past medical history with hypertension, diabetes mellitus, Heptitis C, hypersplenism, pancytopenia, and cirrhosis presenting with fevers. Fevers up to 102.9 F. Chest X-ray negative, Urinalysis negative, and negative rapid flu assay. Patient started on Vancomycin and Zosyn at this time. King cultures sent. Patient is more vulnerable given his liver cirrhosis, poorly controlled diabetes mellitus, and obesity. Continue antibiotics and await cultures. Cannot rule out a viral syndrome. Still with fevers withing the past 24 hours. Thank you for allowing me to participate in the care of the patient, we will follow with you.
[2016-10-15] MEDS: POLYETHYLENE GLYCOL 3350 17 GM/Dose PACKET PO SCH ×2 (16:48→20:14)
--- NOTE | 2016-10-15 23:46 | CP.PCM.PN ---
<TimiEmilie - Last Filed: 10/16/16 06:03> Subjective - Date & Time of Evaluation Date of Evaluation: 10/15/16 Time of Evaluation: 08:15 - Subjective Subjective: Pt seen and evaluated at bedside. Pt denies complaints but has not had bowel movement in days. Intermittent fevers throughout the day, T max 102.5 in the AM. Objective - Vital Signs/Intake and Output Vital Signs (last 24 hours): Temp Pulse Resp BP Pulse Ox 100.5 F H 60 20 132/69 97 10/15/16 14:14 10/15/16 17:02 10/14/16 06:00 10/15/16 17:02 10/14/16 06:00 Intake and Output: 10/15/16 10/16/16 18:59 06:59 Intake Total 360 Output Total 2 Balance 358 - Medications Medications: Current Medications Acetaminophen (Tylenol 325mg Tab) 650 mg PO Q6H PRN PRN Reason: Pain Last Admin: 10/15/16 14:14 Dose: 650 mg Docusate Sodium (Colace) 100 mg PO BID [facility] Last Admin: 10/15/16 20:14 Dose: 100 mg Famotidine (Pepcid) 20 mg PO 1000,2200 [facility] Last Admin: 10/15/16 09:00 Dose: 20 mg Vancomycin HCl (Vancomycin 1gm) 250 mls @ 167 mls/hr IVPB Q12H [facility] PRN Reason: Protocol Last Admin: 10/15/16 08:59 Dose: 167 mls/hr Piperacillin Sod/Tazobactam Sod (Zosyn 3.375 In Ns 100ml) 100 mls @ 200 mls/hr IVPB Q6 [facility] PRN Reason: Protocol Stop: 10/20/16 06:29 Last Admin: 10/15/16 17:00 Dose: 200 mls/hr Insulin Human Lispro (Humalog Low) 0 units SC ACHS [facility] PRN Reason: Protocol Last Admin: 10/15/16 22:02 Dose: Not Given Polyethylene Glycol (Miralax) 17 gm PO DAILY [facility] Last Admin: 10/15/16 20:14 Dose: 17 gm Propranolol HCl (Inderal) 20 mg PO TID [facility] Last Admin: 10/15/16 17:02 Dose: 20 mg - Labs Labs: 10/15/16 07:05 10/15/16 07:05 PT 13.4 Seconds (9.9-11.8) H 10/13/16 19:50 INR 1.24 (0.93-1.08) H 10/13/16 19:50 APTT 26.9 Seconds (23.7-30.8) 10/13/16 19:50 - Additional Findings Additional findings: - Constitutional Appears: Non-toxic, No Acute Distress - Head Exam Head Exam: ATRAUMATIC, NORMOCEPHALIC - Eye Exam Eye Exam: EOMI, PERRL - ENT Exam ENT Exam: Mucous Membranes Moist, Normal Oropharynx - Neck Exam Neck Exam: Normal Inspection - Respiratory Exam Respiratory Exam: Clear to Ausculation Bilateral, NORMAL BREATHING PATTERN. absent: Rales, Rhonchi, Wheezes - Cardiovascular Exam Cardiovascular Exam: REGULAR RHYTHM, +S1, +S2. absent: Gallop, Rubs, Murmur - GI/Abdominal Exam GI & Abdominal Exam: Soft, Normal Bowel Sounds. absent: Tenderness - Extremities Exam Extremities Exam: Normal Inspection. absent: Pedal Edema, Tenderness - Back Exam Back Exam: NORMAL INSPECTION. absent: tenderness - Neurological Exam Neurological Exam: Alert, Awake - Psychiatric Exam Psychiatric exam: Normal Affect, Normal Mood - Skin Skin Exam: Dry, Intact, Normal Color Assessment and Plan - Assessment and Plan (Free Text) Plan: 51 y/o Syrian M with PMH of HTN, DM, Hep C, Hypersplenism, pancytopenia, cirrhosis admitted for fever and pancytopenia. Plan: 1. Fever * ID consulted, help appreciated * CXR showed no active disease * Lactate 1.6 * Rapid flu negative * Procal wnl * blood negative at 24 hours and urine cultres negative Vancomycin and Zosyn * Tylenol prn fever 2. Pancytopenia * Possibly secondary to hypersplenism * Iron studies show Iron 28, TIBC 374, 7% sat * Folate- 13.2 * Continue to monitor 3. DM * Hold home glipizide * Accuchecks ACHS * Sliding scale insulin * F/U A1C 4. HTN * BP wnl * Home Carvedilol D/C's * Continue Propranolol TID * Consider increasing propranolol instead of being on 2 beta chester as out patient GI ppx: Protonix DVT ppx: SCDs <Ubaldo Lyles - Last Filed: 10/16/16 12:21> Objective - Vital Signs/Intake and Output Vital Signs (last 24 hours): Temp Pulse Resp BP Pulse Ox 98.9 F 60 17 145/95 H 99 10/16/16 06:00 10/16/16 09:47 10/16/16 06:00 10/16/16 09:47 10/16/16 06:00 Intake and Output: 10/16/16 10/16/16 06:59 18:59 Intake Total 360 Output Total 2 Balance 358 - Medications Medications: Current Medications Acetaminophen (Tylenol 325mg Tab) 650 mg PO Q6H PRN PRN Reason: Pain Last Admin: 10/15/16 14:14 Dose: 650 mg Docusate Sodium (Colace) 100 mg PO BID [facility] Last Admin: 10/16/16 09:47 Dose: 100 mg Famotidine (Pepcid) 20 mg PO 1000,2200 [facility] [place] Last Admin: 10/16/16 09:47 Dose: 20 mg Vancomycin HCl (Vancomycin 1gm) 250 mls @ 167 mls/hr IVPB Q12H [facility] PRN Reason: Protocol Last Admin: 10/16/16 09:46 Dose: 167 mls/hr Piperacillin Sod/Tazobactam Sod (Zosyn 3.375 In Ns 100ml) 100 mls @ 200 mls/hr IVPB Q6 [facility] PRN Reason: Protocol Stop: 10/20/16 06:29 Last Admin: 10/16/16 11:26 Dose: 200 mls/hr Insulin Human Lispro (Humalog Low) 0 units SC ACHS [facility] PRN Reason: Protocol Last Admin: 10/16/16 11:52 Dose: 4 units Polyethylene Glycol (Miralax) 17 gm PO DAILY [facility] Last Admin: 10/16/16 09:48 Dose: 17 gm Propranolol HCl (Inderal) 20 mg PO TID [facility] [place] Last Admin: 10/16/16 09:47 Dose: 20 mg - Labs Labs: 10/16/16 06:50 10/16/16 06:50 PT 13.4 Seconds (9.9-11.8) H 10/13/16 19:50 INR 1.24 (0.93-1.08) H 10/13/16 19:50 APTT 26.9 Seconds (23.7-30.8) 04/14/17 19:50 Attending/Attestation - Attestation I have personally seen and examined this patient.: Yes I have fully participated in the care of the patient.: Yes I have reviewed all pertinent clinical information, including history, physical exam and plan: Yes Notes (Text): 10/15/16 51 year old male with past medical history of HTN, DM, hepatitis C, cirrhosis, esophageal varices and pancytopenia who presented with complaint of fever. Workup including CXR, UA, procalcitonin and blood cultures to date are negative. He is on broad spectrum antibiotics and ID is following. He has pancytopenia and iron deficiency anemia. May need iron supplementation. Will continue to monitor closely. Will need to review his recent EGD/ colonoscopy. Continue with insulin ss for diabetes. A1c level is pending. He is on propranolol for hypertension. Colace and miralax are added for complaint of constipation. Ubaldo Lyles MD Hospitalist.
[2016-10-16 07:16] LABS: EOS % 0.8 % (1.5-5.0); GRAN # 1.27 (1.4-6.5); GRAN % 53.9 % (50.0-68.0); HEMATOCRIT 28.9 % (42.0-52.0); LYMPH # 0.7 (1.2-3.4); LYMPH % 30.9 % (22.0-35.0); MEAN CELL VOLUME 69.6 fL (80.0-105.0); MEAN CORPUSCULAR HEMOGLOBIN 21.2 pg (25.0-35.0); MEAN CORPUSCULAR HGB CONC 30.4 g/dl (31.0-37.0); MONO # 0.3 (0.1-0.6); MONO % 14.4 % (1.0-6.0); RED CELL DISTRIBUTION WIDTH 19.6 % (11.5-14.5)
[2016-10-16 07:19] LABS: PLATELET COUNT 43 10^3/uL (120.0-450.0); WHITE BLOOD COUNT 2.4 10^3/ul (4.5-11.0)
[2016-10-16 07:36] LABS: ALKALINE PHOSPHATASE 52 U/L (38-133); ALT/SGPT 45 U/L (7-56); AST/SGOT 44 U/L (15-59); BLOOD UREA NITROGEN 12 mg/dL (7-21); CALCIUM 8.1 mg/dL (8.4-10.5); CARBON DIOXIDE 24 mmol/L (21-33); CHLORIDE 103 mmol/L (98-107); GLUCOSE,RANDOM 198 mg/dL (70-110); SODIUM 133 mmol/L (132-148)
[2016-10-16 07:38] LABS: GFR AFRICAN-AMERICAN > 60
[2016-10-16 07:39] LABS: TOTAL PROTEIN 6.8 g/dL (5.8-8.3)
[2016-10-16 07:40] LABS: ALB/GLOB RATIO 0.9 (1.1-1.8)
[2016-10-16 08:00] LABS: ADD MANUAL DIFF? NO
[2016-10-16] MEDS: Insulin Lispro (humaLOG) LOW Coverage SC SCH ×4 (08:06→22:49)
[2016-10-16] MEDS: Vancomycin 1gm in NS 250ml 250 ML IVPB SCH ×3 (09:46→21:01)
[2016-10-16] MEDS: POLYETHYLENE GLYCOL 3350 17 GM/Dose PACKET PO SCH ×2 (09:48→23:39)
[2016-10-16] MEDS: Piperacillin/Tazobact 3.375 gm 100 ML IVPB SCH ×4 (11:26→23:45)
[2016-10-16 11:53] LABS: RETIC% 1.94 % (0.5-1.5)
--- NOTE | 2016-10-16 18:10 | CP.PCM.PN ---
Subjective - Date & Time of Evaluation Date of Evaluation: 10/16/16 Time of Evaluation: 17:30 - Subjective Subjective: Infectious Disease Follow Up: October 16, 2016 51 yo [place] male with Hypertension, Diabetes Mellitus, Hepatitis C, Esophageal Varices, and hypersplenism with fevers for the past 3 days. Subjective fevers and chills. No other specific issues. Fever as high as 102.9 F here in hospital during this admission. Cultures negative to date. He makes no other complaints. Temperature up to 100.5 F in the past 24 hours. Still no bowel movements. Objective - Vital Signs/Intake and Output Vital Signs (last 24 hours): Temp Pulse Resp BP Pulse Ox 98.9 F 63 17 160/84 H 99 10/16/16 06:00 10/16/16 17:00 10/16/16 06:00 10/16/16 17:00 10/16/16 06:00 Intake and Output: 10/16/16 10/16/16 06:59 18:59 Intake Total 360 Output Total 2 Balance 358 - Medications Medications: Current Medications Acetaminophen (Tylenol 325mg Tab) 650 mg PO Q6H PRN PRN Reason: Pain Last Admin: 10/15/16 14:14 Dose: 650 mg Docusate Sodium (Colace) 100 mg PO BID [facility] Last Admin: 10/16/16 16:59 Dose: 100 mg Famotidine (Pepcid) 20 mg PO 1000,2200 [facility] Last Admin: 10/16/16 09:47 Dose: 20 mg Vancomycin HCl (Vancomycin 1gm) 250 mls @ 167 mls/hr IVPB Q12H [facility] PRN Reason: Protocol Last Admin: 10/16/16 09:46 Dose: 167 mls/hr Piperacillin Sod/Tazobactam Sod (Zosyn 3.375 In Ns 100ml) 100 mls @ 200 mls/hr IVPB Q6 [facility] PRN Reason: Protocol Stop: 10/20/16 06:29 Last Admin: 10/16/16 11:26 Dose: 200 mls/hr Insulin Human Lispro (Humalog Low) 0 units SC ACHS [facility] PRN Reason: Protocol Last Admin: 10/16/16 17:00 Dose: 4 units Polyethylene Glycol (Miralax) 17 gm PO DAILY [facility] Last Admin: 10/16/16 09:48 Dose: 17 gm Propranolol HCl (Inderal) 20 mg PO TID [facility] Last Admin: 10/16/16 17:00 Dose: 20 mg - Labs Labs: 10/16/16 06:50 10/16/16 06:50 PT 13.4 Seconds (9.9-11.8) H 10/13/16 19:50 INR 1.24 (0.93-1.08) H 10/13/16 19:50 APTT 26.9 Seconds (23.7-30.8) 10/13/16 19:50 - Constitutional Appears: No Acute Distress, Chronically Ill - Head Exam Head Exam: ATRAUMATIC, NORMOCEPHALIC - Eye Exam Eye Exam: EOMI, PERRL Pupil Exam: NORMAL ACCOMODATION, PERRL - ENT Exam ENT Exam: Mucous Membranes Moist, Normal External Ear Exam, TM's Normal Bilaterally - Neck Exam Neck Exam: Full ROM, Normal Inspection - Respiratory Exam Respiratory Exam: Clear to Ausculation Bilateral, NORMAL BREATHING PATTERN. absent: Rales, Rhonchi, Wheezes - Cardiovascular Exam Cardiovascular Exam: REGULAR RHYTHM, RRR, +S1, +S2 - GI/Abdominal Exam GI & Abdominal Exam: Distended, Soft, Normal Bowel Sounds. absent: Tenderness Additional comments: Splenomegaly. - Extremities Exam Extremities Exam: Full ROM, Normal Inspection - Neurological Exam Neurological Exam: Alert, Awake, CN II-XII Intact, Oriented x3 - Psychiatric Exam Psychiatric exam: Normal Affect, Normal Mood - Skin Skin Exam: Intact, Normal Color Assessment and Plan - Assessment and Plan (Free Text) Assessment: 51 yo [place] male with extensive past medical history with hypertension, diabetes mellitus, Heptitis C, hypersplenism, pancytopenia, and cirrhosis presenting with fevers. Fevers up to 102.9 F during this hospitalization. Chest X-ray negative, Urinalysis negative, and negative rapid flu assay. Patient started on Vancomycin and Zosyn at this time. King cultures sent. Patient is more vulnerable given his liver cirrhosis, poorly controlled diabetes mellitus, and obesity. Continue antibiotics and await cultures. Cannot rule out a viral syndrome. Still with fevers withing the past 24 hours up to 100.5 F. Chest abdominal X- ray given lack of bowel movements. Cultures negative. Thank you for allowing me to participate in the care of the patient, we will follow with you.
--- NOTE | 2016-10-16 19:44 | CP.PCM.PN ---
<Nnamdi Christy - Last Filed: 10/16/16 19:41> Subjective - Date & Time of Evaluation Date of Evaluation: 10/16/16 Time of Evaluation: 09:00 - Subjective Subjective: Dr. Christy PGY 1 Hospitalist note Patient seen and evaluated at bedside with family present. He states he is feeling much better although had fever yesterday. He denies any aches, chills, nausea, vomiting, chest pain, or palpitations. On further inquiry, his daughter reports that he is supposed to see a dentist soon for complaint of toothache. 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 He recently moved positions due to breaking his arm but still comes in contact with the animals. Objective - Vital Signs/Intake and Output Vital Signs (last 24 hours): Temp Pulse Resp BP Pulse Ox 98.9 F 63 17 160/84 H 99 10/16/16 06:00 10/16/16 17:00 10/16/16 06:00 10/16/16 17:00 10/16/16 06:00 - Medications Medications: Current Medications Acetaminophen (Tylenol 325mg Tab) 650 mg PO Q6H PRN PRN Reason: Pain Last Admin: 10/15/16 14:14 Dose: 650 mg Docusate Sodium (Colace) 100 mg PO BID [facility] Last Admin: 10/16/16 16:59 Dose: 100 mg Famotidine (Pepcid) 20 mg PO 1000,2200 [facility] Last Admin: 10/16/16 09:47 Dose: 20 mg Vancomycin HCl (Vancomycin 1gm) 250 mls @ 167 mls/hr IVPB Q12H PRAVEENA PRN Reason: Protocol Last Admin: 10/16/16 09:46 Dose: 167 mls/hr Piperacillin Sod/Tazobactam Sod (Zosyn 3.375 In Ns 100ml) 100 mls @ 200 mls/hr IVPB Q6 PRAVEENA PRN Reason: Protocol Stop: 10/20/16 06:29 Last Admin: 10/16/16 18:24 Dose: 200 mls/hr Insulin Human Lispro (Humalog Low) 0 units SC ACHS PRAVEENA PRN Reason: Protocol Last Admin: 10/16/16 17:00 Dose: 4 units Polyethylene Glycol (Miralax) 17 gm PO DAILY [facility] Last Admin: 10/16/16 09:48 Dose: 17 gm Propranolol HCl (Inderal) 20 mg PO TID [facility] Last Admin: 10/16/16 17:00 Dose: 20 mg - Labs Labs: 10/16/16 06:50 10/16/16 06:50 PT 13.4 Seconds (9.9-11.8) H 10/13/16 19:50 INR 1.24 (0.93-1.08) H 10/13/16 19:50 APTT 26.9 Seconds (23.7-30.8) 10/13/16 19:50 - Constitutional Appears: Non-toxic, No Acute Distress - Head Exam Head Exam: ATRAUMATIC, NORMOCEPHALIC - Eye Exam Eye Exam: EOMI, Normal appearance, PERRL Pupil Exam: NORMAL ACCOMODATION, PERRL - ENT Exam ENT Exam: Mucous Membranes Moist - Respiratory Exam Respiratory Exam: Clear to Ausculation Bilateral, NORMAL BREATHING PATTERN. absent: Rales, Rhonchi, Wheezes - Cardiovascular Exam Cardiovascular Exam: REGULAR RHYTHM, +S1, +S2 - GI/Abdominal Exam GI & Abdominal Exam: Soft, Normal Bowel Sounds. absent: Tenderness - Extremities Exam Extremities Exam: Normal Capillary Refill, Normal Inspection. absent: Pedal Edema, Tenderness - Back Exam Back Exam: NORMAL INSPECTION. absent: rash noted, tenderness - Neurological Exam Neurological Exam: Alert, Awake, CN II-XII Intact, Oriented x3, Reflexes Normal - Psychiatric Exam Psychiatric exam: Normal Affect, Normal Mood - Skin Skin Exam: Dry, Intact, Normal Color, Warm. absent: Rash, Urticaria, Vesicles Assessment and Plan - Assessment and Plan (Free Text) Assessment: 51 y/o Cameroonian M with PMH of HTN, DM, Hep C, Hypersplenism, pancytopenia, cirrhosis admitted for fever and pancytopenia. Plan: 1. Fever * ID consulted, help appreciated * CXR showed no active disease * Lactate 1.6 * Rapid flu negative * Procal wnl * blood and urine culturesnegative * continue Vancomycin and Zosyn * Ordered ESR, CRP, Retic count * Ordered Coxiella,Brucella, and Pasteurella IgG and IgM * Tylenol prn fever 2. Pancytopenia * Possibly secondary to hypersplenism * Cosult Heme/Onc help appreciated * Iron studies show Iron 28, TIBC 374, 7% sat * Folate- 13.2 * Continue to monitor 3. DM * Hold home glipizide * Accuchecks ACHS * Sliding scale insulin * A1C 9.3 4. HTN * BP wnl * Home Carvedilol D/C's * Continue Propranolol TID * Consider increasing propranolol instead of being on 2 beta chester as out patient GI ppx: Protonix DVT ppx: SCDs Case seen, reviewed and discussed with attending <Galdino Canchola MD - Last Filed: 10/17/16 16:33> Objective - Vital Signs/Intake and Output Vital Signs (last 24 hours): Temp Pulse Resp BP Pulse Ox 98.3 F 56 L 18 156/86 H 100 10/17/16 06:00 10/17/16 10:47 10/17/16 06:00 10/17/16 10:47 10/17/16 06:00 Intake and Output: 10/17/16 10/17/16 06:59 18:59 Intake Total 120 800 Balance 120 800 - Labs Labs: 10/17/16 06:15 10/17/16 06:15 PT 13.4 Seconds (9.9-11.8) H 10/13/16 19:50 INR 1.24 (0.93-1.08) H 10/13/16 19:50 APTT 26.9 Seconds (23.7-30.8) 10/13/16 19:50 Attending/Attestation - Attestation I have personally seen and examined this patient.: Yes I have fully participated in the care of the patient.: Yes I have reviewed all pertinent clinical information, including history, physical exam and plan: Yes Notes (Text): Patient was seen and examined with medical information specialist .Agreed with resident assessment and plan. 51 yo male with extensive past medical history with hypertension, diabetes mellitus, Heptitis C, liver cirrhosis, hypersplenism, pancytopenia likely due to hyperspenism and chronic liver disease , presenting with fevers. Chest X- ray negative, Urinalysis negative, and negative rapid flu assay. Patient started on Vancomycin and Zosyn at this time. Patient cultures are negative so far, patient is afebrile, ID is following. Thrombocytopenia is stable. Management plan was discussed in detail with patient Education was provided.
[2016-10-16 20:57] VITALS: O2SAT 100
[2016-10-17] MEDS: Piperacillin/Tazobact 3.375 gm 100 ML IVPB SCH (05:53)
[2016-10-17 07:17] LABS: EOS % 1.2 % (1.5-5.0); GRAN % 57.2 % (50.0-68.0); HEMATOCRIT 28.3 % (42.0-52.0); LYMPH # 0.7 (1.2-3.4); LYMPH % 30.2 % (22.0-35.0); MONO # 0.3 (0.1-0.6); MONO % 11.4 % (1.0-6.0); PLATELET COUNT 43 10^3/uL (120.0-450.0); RED CELL DISTRIBUTION WIDTH 19.6 % (11.5-14.5)
[2016-10-17 07:22] LABS: ALB/GLOB RATIO 0.8 (1.1-1.8); ALKALINE PHOSPHATASE 52 U/L (38-133); ALT/SGPT 50 U/L (7-56); AST/SGOT 40 U/L (15-59); BLOOD UREA NITROGEN 12 mg/dL (7-21); CALCIUM 8.1 mg/dL (8.4-10.5); CARBON DIOXIDE 26 mmol/L (21-33); CHLORIDE 104 mmol/L (98-107); GFR AFRICAN-AMERICAN > 60; GLUCOSE,RANDOM 227 mg/dL (70-110); POTASSIUM 3.9 mmol/L (3.6-5.0); SODIUM 137 mmol/L (132-148); TOTAL PROTEIN 6.5 g/dL (5.8-8.3)
[2016-10-17 07:31] LABS: WHITE BLOOD COUNT 2.5 10^3/ul (4.5-11.0)
[2016-10-17 07:32] LABS: ADD MANUAL DIFF? NO
[2016-10-17 07:53] VITALS: BP 156/86; PULSE 56; RESP 18; TEMP 98.3
[2016-10-17] MEDS: Insulin Lispro (humaLOG) LOW Coverage SC SCH ×2 (08:56→12:21)
--- NOTE | 2016-10-17 09:29 | RAD ---
HISTORY: obstruction, impactation COMPARISON: No prior. FINDINGS: BOWEL: Normal. No obstruction. No free air. BONES: Normal. OTHER FINDINGS: None. IMPRESSION: No active disease.
[2016-10-17] MEDS: POLYETHYLENE GLYCOL 3350 17 GM/Dose PACKET PO SCH (10:48)
[2016-10-17] MEDS: Vancomycin 1gm in NS 250ml 250 ML IVPB SCH (10:48)
--- NOTE | 2016-10-17 14:00 | CP.PCM.DIS ---
<Nnamdi Christy - Last Filed: 10/18/16 18:35> Provider - Provider Date of Admission: 10/13/16 21:20 Attending physician: Galdino Canchola MD Consults: Dr. Tremaine Chowdhury Time Spent in preparation of Discharge (in minutes): 45 Hospital Course - Lab Results Lab Results: Micro Results 10/13/16 22:00 Blood Blood Culture - Preliminary NO GROWTH AFTER 3 DAYS 10/13/16 21:30 Blood Blood Culture - Preliminary NO GROWTH AFTER 3 DAYS Most Recent Lab Values WBC 2.5 10^3/ul (4.5-11.0) L* 10/17/16 06:15 RBC 4.04 10^6/uL (3.5-6.1) 10/17/16 06:15 Hgb 8.5 gm/dL (14.0-18.0) L 10/17/16 06:15 Hct 28.3 % (42.0-52.0) L 10/17/16 06:15 MCV 70.0 fL (80.0-105.0) L 10/17/16 06:15 MCH 21.0 pg (25.0-35.0) L 10/17/16 06:15 MCHC 30.0 g/dl (31.0-37.0) L 10/17/16 06:15 RDW 19.6 % (11.5-14.5) H 10/17/16 06:15 Plt Count 43 10^3/uL (120.0-450.0) L* 10/17/16 06:15 Manual Plt Count 60 K/mm3 (120-450) L* 10/16/16 07:00 Gran % 57.2 % (50.0-68.0) 10/17/16 06:15 Lymph % (Auto) 30.2 % (22.0-35.0) 10/17/16 06:15 Sioux % (Auto) 11.4 % (1.0-6.0) H 10/17/16 06:15 Eos % (Auto) 1.2 % (1.5-5.0) L 10/17/16 06:15 Baso % (Auto) 0.0 % (0.0-3.0) 10/17/16 06:15 Gran # 1.40 (1.4-6.5) 10/17/16 06:15 Lymph # 0.7 (1.2-3.4) L 10/17/16 06:15 [place]oux # 0.3 (0.1-0.6) 10/17/16 06:15 Eos # 0.0 (0.0-0.7) 10/17/16 06:15 Baso # 0.00 K/mm3 (0.0-2.0) 10/17/16 06:15 Neutrophils % (Manual) 61 % (50.0-70.0) 10/15/16 07:05 Band Neutrophils % 3 % (0-2) H 10/15/16 07:05 Lymphocytes % (Manual) 23 % (22.0-35.0) 10/15/16 07:05 Monocytes % (Manual) 13 % (1.0-6.0) H 10/15/16 07:05 Eosinophils % (Manual) 1 % (0.0-3.0) 10/13/16 19:50 Platelet Evaluation Low (NORMAL) 10/15/16 07:05 Large Platelets Present 10/15/16 07:05 Giant Platelets Present 10/13/16 19:50 Hypochromasia 1+ 10/14/16 09:38 Anisocytosis (manual) 1+ 10/14/16 09:38 ESR 11 mm/hr (0.00-15.0) 10/16/16 08:00 Retic Count 1.94 % (0.5-1.5) H 10/16/16 08:00 PT 13.4 Seconds (9.9-11.8) H 10/13/16 19:50 INR 1.24 (0.93-1.08) H 10/13/16 19:50 APTT 26.9 Seconds (23.7-30.8) 10/13/16 19:50 pO2 158 mm/Hg (30-55) H 10/13/16 19:50 VBG pH 7.40 (7.32-7.43) 10/13/16 19:50 VBG pCO2 39.0 (40-60) L 10/13/16 19:50 VBG HCO3 24.2 mmol/l (21-28) 10/13/16 19:50 VBG Total CO2 25.4 mmol.L (22-28) 10/13/16 19:50 VBG O2 Sat (Calc) 99.7 % (40-65) H 10/13/16 19:50 VBG Base Excess -0.5 mmol/L (0.0-2.0) L 10/13/16 19:50 VBG Potassium 4.1 mmol/L (3.6-5.2) 10/13/16 19:50 Sodium 135.0 mmol/L (132-148) 10/13/16 19:50 Chloride 107.0 mmol/L (98-107) 10/13/16 19:50 Glucose 290 mg/dl (75-110) H 10/13/16 19:50 Lactate 1.6 mmol/L (0.7-2.1) 10/13/16 19:50 FiO2 21.0 % 10/13/16 19:50 Sodium 137 mmol/L (132-148) 10/17/16 06:15 Potassium 3.9 mmol/L (3.6-5.0) 10/17/16 06:15 Chloride 104 mmol/L (98-107) 10/17/16 06:15 Carbon Dioxide 26 mmol/L (21-33) 10/17/16 06:15 Anion Gap 11 (10-20) 10/17/16 06:15 BUN 12 mg/dL (7-21) 10/17/16 06:15 Creatinine 0.6 mg/dL (0.5-1.4) 10/17/16 06:15 Est GFR ( Amer) > 60 10/17/16 06:15 Est GFR (Non-Af Amer) > 60 10/17/16 06:15 POC Glucose (mg/dL) 184 mg/dL (65-110) H 10/15/16 21:17 Random Glucose 227 mg/dL (70-110) H 10/17/16 06:15 Hemoglobin A1c 9.3 % (4.2-6.5) H 10/15/16 07:05 Calcium 8.1 mg/dL (8.4-10.5) L 10/17/16 06:15 Magnesium 1.9 mg/dL (1.7-2.2) 10/13/16 19:50 Iron 28 ug/dL (45-180) L 10/13/16 19:50 TIBC 374 ug/dL (261-462) 10/13/16 19:50 % Saturation 7 % (20-55) L 10/13/16 19:50 Ferritin 9.4 ng/mL 10/13/16 19:50 Total Bilirubin 1.0 mg/dL (0.2-1.3) 10/17/16 06:15 AST 40 U/L (15-59) 10/17/16 06:15 ALT 50 U/L (7-56) 10/17/16 06:15 Alkaline Phosphatase 52 U/L (38-133) 10/17/16 06:15 Lactate Dehydrogenase 576 U/L (333-699) 10/13/16 19:50 Total Creatine Kinase 74 U/L (35-230) 10/13/16 19:50 Troponin I < 0.01 ng/mL 10/13/16 19:50 C-React Prot High Sens 11.26 mg/L (1.00-3.00) H 10/16/16 08:00 Total Protein 6.5 g/dL (5.8-8.3) 10/17/16 06:15 Albumin 2.9 g/dL (3.0-4.8) L 10/17/16 06:15 Globulin 3.6 gm/dL 10/17/16 06:15 Albumin/Globulin Ratio 0.8 (1.1-1.8) L 10/17/16 06:15 Folate 13.2 ng/mL 10/13/16 19:50 Procalcitonin 0.08 NG/ML (0.19-0.49) L 10/13/16 22:30 Venous Blood Potassium 4.1 mmol/L (3.6-5.2) 10/13/16 19:50 Urine Color Yellow (YELLOW) 10/13/16 19:50 Urine Appearance Clear (CLEAR) 10/13/16 19:50 Urine pH 6.0 (4.7-8.0) 10/13/16 19:50 Ur Specific Bentley 1.025 (1.005-1.035) 10/13/16 19:50 Urine Protein Trace mg/dL (<30 mg/dL) H 10/13/16 19:50 Urine Glucose (UA) 500 mg/dL (NEGATIVE) H 10/13/16 19:50 Urine Ketones Trace mg/dL (NEGATIVE) H 10/13/16 19:50 Urine Blood Negative (NEGATIVE) 10/13/16 19:50 Urine Nitrate Negative (NEGATIVE) 10/13/16 19:50 Urine Bilirubin Negative (NEGATIVE) 10/13/16 19:50 Urine Urobilinogen 0.2 E.U./dL (<1 E.U./dL) 10/13/16 19:50 Ur Leukocyte Esterase Negative Kaycee/uL (NEGATIVE) 10/13/16 19:50 Urine RBC 0 - 2 /hpf (0-2) 10/13/16 19:50 Urine WBC 0 - 2 /hpf (0-6) 10/13/16 19:50 Influenza Typ A,B (EIA) Negative for flu a/b (NEGATIVE) 10/13/16 22:30 - Hospital Course Hospital Course: This is a 51Y Finnish M with PMH of HTN, DM, Hep C s/p tx with Harvoni, esophageal varcies, hypersplenism who came to the ED with fever for the past 3 days. Patient does not speak Bangladeshi. Daughter is at bedside to translate. He has been having subjective fevers and chills for the past 3 days. He denies sick contacts or recent travel. He does not have any pain, cough, n/v/d, SOB, CP , rash, lesions or sore throat. He says he has a good appetite as well and has not noticed any weight loss. It is noted that he did have an EGD and colonoscopy 1 week ago. He did have a polyp removed during the colonoscopy. Patient is a 51 y/o Finnish M who presented with 3 days of fever. He was found to be pancytopenic. ID and Hematology were consulted. He was started on IV vancomycin and zosyn. His rapid flu was negative and chest xray showed no active disease. His procalcitonin was within normal limits but had elevated CRP. His fevers resolved and his cultures remained negative. 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 Per ID patient's condition was likely viral and could be discharged without antibiotics. His A1c was found to be 9.3 and he was advised to keep a diabetic diet, monitor glucose at home, and keep a food and sugar log. Patient was determined medically stable for discharge. He was advised to: follow up with your primary care physician within a week; follow up the [facility], or have your primary care physician refer one; make your appointment with your right of way agent; resume home medications and take as prescribed; refrain from high carbohydrate diet and keep a diabetic diet; keep a log of your home blood sugar and blood pressure; avoid sick people as your white blood cell count is low; refrain from alcohol, tobacco, or drug use; if your condition worsens or new symptoms arise, please return to the emergency room. Patient and family present verbalized understanding and was discharged home. This is a brief summary of the patient's stay at this procedure, for more detail , see patients full chart. - Date & Time of H&P Date of H&P: 10/13/16 Time of H&P: 22:11 Discharge Exam - Head Exam Head Exam: ATRAUMATIC, NORMOCEPHALIC - Eye Exam Eye Exam: EOMI, Normal appearance, PERRL Pupil Exam: NORMAL ACCOMODATION, PERRL - ENT Exam ENT Exam: Mucous Membranes Moist - Respiratory Exam Respiratory Exam: NORMAL BREATHING PATTERN. absent: Rales, Rhonchi, Wheezes - Cardiovascular Exam Cardiovascular Exam: REGULAR RHYTHM, +S1, +S2 - GI/Abdominal Exam GI & Abdominal Exam: Normal Bowel Sounds, Soft. absent: Tenderness - Extremities Exam Extremities exam: normal capillary refill, normal inspection, pedal pulses present - Back Exam Back exam: NORMAL INSPECTION. absent: rash noted, tenderness - Neurological Exam Neurological exam: Alert, CN II-XII Intact, Oriented x3, Reflexes Normal - Psychiatric Exam Psychiatric exam: Normal Affect, Normal Mood - Skin Skin Exam: Dry, Intact, Normal Color, Warm Discharge Plan - Follow Up Plan Condition: STABLE Disposition: HOME/ ROUTINE Instructions: Thrombocytopenia (DC), Thrombocytopenia (GEN), Bone Marrow Failure in Children (DC), Bone Marrow Failure in Children (GEN) Additional Instructions: You are medically stable for discharge. Please follow up with your primary care physician within a week. Please follow up the [facility], or have your primary care physician refer one. Please make your appointment with your right of way agent. Resume home medications and take as prescribed. Please refrain from high carbohydrate diet and keep a diabetic diet. Keep a log of your home blood sugar and blood pressure. Avoid sick people as your white blood cell count is low. Please refrain from alcohol, tobacco, or drug use. If your condition worsens or new symptoms arise, please return to the emergency room. Referrals: Wayne Chowdhury MD [Medical Doctor] - Tremaine Albarado MD [Staff Provider] - <Galdino Canchola MD - Last Filed: 10/21/16 10:27> Provider - Provider Date of Admission: 10/13/16 21:20 Attending physician: Galdino Canchola MD Hospital Course - Lab Results Lab Results: Micro Results 10/13/16 22:00 Blood Blood Culture - Final NO GROWTH AFTER 5 DAYS 10/13/16 22:00 Blood Gram Stain - Final 10/13/16 21:30 Blood Blood Culture - Final NO GROWTH AFTER 5 DAYS 10/13/16 21:30 Blood Gram Stain - Final TEST NOT PERFORMED Most Recent Lab Values WBC 2.5 10^3/ul (4.5-11.0) L* 10/17/16 06:15 RBC 4.04 10^6/uL (3.5-6.1) 10/17/16 06:15 Hgb 8.5 gm/dL (14.0-18.0) L 10/17/16 06:15 Hct 28.3 % (42.0-52.0) L 10/17/16 06:15 MCV 70.0 fL (80.0-105.0) L 10/17/16 06:15 MCH 21.0 pg (25.0-35.0) L 10/17/16 06:15 MCHC 30.0 g/dl (31.0-37.0) L 10/17/16 06:15 RDW 19.6 % (11.5-14.5) H 10/17/16 06:15 Plt Count 43 10^3/uL (120.0-450.0) L* 10/17/16 06:15 Manual Plt Count 60 K/mm3 (120-450) L* 10/16/16 07:00 Gran % 57.2 % (50.0-68.0) 10/17/16 06:15 Lymph % (Auto) 30.2 % (22.0-35.0) 10/17/16 06:15 Sioux % (Auto) 11.4 % (1.0-6.0) H 10/17/16 06:15 Eos % (Auto) 1.2 % (1.5-5.0) L 10/17/16 06:15 Baso % (Auto) 0.0 % (0.0-3.0) 10/17/16 06:15 Gran # 1.40 (1.4-6.5) 10/17/16 06:15 Lymph # 0.7 (1.2-3.4) L 10/17/16 06:15 [place]oux # 0.3 (0.1-0.6) 10/17/16 06:15 Eos # 0.0 (0.0-0.7) 10/17/16 06:15 Baso # 0.00 K/mm3 (0.0-2.0) 10/17/16 06:15 Neutrophils % (Manual) 61 % (50.0-70.0) 10/15/16 07:05 Band Neutrophils % 3 % (0-2) H 10/15/16 07:05 Lymphocytes % (Manual) 23 % (22.0-35.0) 10/15/16 07:05 Monocytes % (Manual) 13 % (1.0-6.0) H 10/15/16 07:05 Eosinophils % (Manual) 1 % (0.0-3.0) 10/13/16 19:50 Platelet Evaluation Low (NORMAL) 10/15/16 07:05 Large Platelets Present 10/15/16 07:05 Giant Platelets Present 10/13/16 19:50 Hypochromasia 1+ 10/14/16 09:38 Anisocytosis (manual) 1+ 10/14/16 09:38 ESR 11 mm/hr (0.00-15.0) 10/16/16 08:00 Retic Count 1.94 % (0.5-1.5) H 10/16/16 08:00 PT 13.4 Seconds (9.9-11.8) H 10/13/16 19:50 INR 1.24 (0.93-1.08) H 10/13/16 19:50 APTT 26.9 Seconds (23.7-30.8) 10/13/16 19:50 pO2 158 mm/Hg (30-55) H 10/13/16 19:50 VBG pH 7.40 (7.32-7.43) 10/13/16 19:50 VBG pCO2 39.0 (40-60) L 10/13/16 19:50 VBG HCO3 24.2 mmol/l (21-28) 10/13/16 19:50 VBG Total CO2 25.4 mmol.L (22-28) 10/13/16 19:50 VBG O2 Sat (Calc) 99.7 % (40-65) H 10/13/16 19:50 VBG Base Excess -0.5 mmol/L (0.0-2.0) L 10/13/16 19:50 VBG Potassium 4.1 mmol/L (3.6-5.2) 10/13/16 19:50 Sodium 135.0 mmol/L (132-148) 10/13/16 19:50 Chloride 107.0 mmol/L (98-107) 10/13/16 19:50 Glucose 290 mg/dl (75-110) H 10/13/16 19:50 Lactate 1.6 mmol/L (0.7-2.1) 10/13/16 19:50 FiO2 21.0 % 10/13/16 19:50 Sodium 137 mmol/L (132-148) 10/17/16 06:15 Potassium 3.9 mmol/L (3.6-5.0) 10/17/16 06:15 Chloride 104 mmol/L (98-107) 10/17/16 06:15 Carbon Dioxide 26 mmol/L (21-33) 10/17/16 06:15 Anion Gap 11 (10-20) 10/17/16 06:15 BUN 12 mg/dL (7-21) 10/17/16 06:15 Creatinine 0.6 mg/dL (0.5-1.4) 10/17/16 06:15 Est GFR ( Amer) > 60 10/17/16 06:15 Est GFR (Non-Af Amer) > 60 10/17/16 06:15 POC Glucose (mg/dL) 392 mg/dL (65-110) H 10/17/16 11:00 Random Glucose 227 mg/dL (70-110) H 10/17/16 06:15 Hemoglobin A1c 9.3 % (4.2-6.5) H 10/15/16 07:05 Calcium 8.1 mg/dL (8.4-10.5) L 10/17/16 06:15 Magnesium 1.9 mg/dL (1.7-2.2) 10/13/16 19:50 Iron 28 ug/dL (45-180) L 10/13/16 19:50 TIBC 374 ug/dL (261-462) 10/13/16 19:50 % Saturation 7 % (20-55) L 10/13/16 19:50 Ferritin 9.4 ng/mL 10/13/16 19:50 Total Bilirubin 1.0 mg/dL (0.2-1.3) 10/17/16 06:15 AST 40 U/L (15-59) 10/17/16 06:15 ALT 50 U/L (7-56) 10/17/16 06:15 Alkaline Phosphatase 52 U/L (38-133) 10/17/16 06:15 Lactate Dehydrogenase 576 U/L (333-699) 10/13/16 19:50 Total Creatine Kinase 74 U/L (35-230) 10/13/16 19:50 Troponin I < 0.01 ng/mL 10/13/16 19:50 C-React Prot High Sens 11.26 mg/L (1.00-3.00) H 10/16/16 08:00 Total Protein 6.5 g/dL (5.8-8.3) 10/17/16 06:15 Albumin 2.9 g/dL (3.0-4.8) L 10/17/16 06:15 Globulin 3.6 gm/dL 10/17/16 06:15 Albumin/Globulin Ratio 0.8 (1.1-1.8) L 10/17/16 06:15 Folate 13.2 ng/mL 10/13/16 19:50 Procalcitonin 0.08 NG/ML (0.19-0.49) L 10/13/16 22:30 Venous Blood Potassium 4.1 mmol/L (3.6-5.2) 10/13/16 19:50 Urine Color Yellow (YELLOW) 10/13/16 19:50 Urine Appearance Clear (CLEAR) 10/13/16 19:50 Urine pH 6.0 (4.7-8.0) 10/13/16 19:50 Ur Specific Bentley 1.025 (1.005-1.035) 10/13/16 19:50 Urine Protein Trace mg/dL (<30 mg/dL) H 10/13/16 19:50 Urine Glucose (UA) 500 mg/dL (NEGATIVE) H 10/13/16 19:50 Urine Ketones Trace mg/dL (NEGATIVE) H 10/13/16 19:50 Urine Blood Negative (NEGATIVE) 10/13/16 19:50 Urine Nitrate Negative (NEGATIVE) 10/13/16 19:50 Urine Bilirubin Negative (NEGATIVE) 10/13/16 19:50 Urine Urobilinogen 0.2 E.U./dL (<1 E.U./dL) 10/13/16 19:50 Ur Leukocyte Esterase Negative Kaycee/uL (NEGATIVE) 10/13/16 19:50 Urine RBC 0 - 2 /hpf (0-2) 10/13/16 19:50 Urine WBC 0 - 2 /hpf (0-6) 10/13/16 19:50 Brucella Agglutinins (()) 10/17/16 07:00 Brucella IgG Antibody 0.24 (()) 10/17/16 07:00 Brucella IgM Antibody 0.09 (()) 10/17/16 07:00 Influenza Typ A,B (EIA) Negative for flu a/b (NEGATIVE) 10/13/16 22:30 Attending/Attestation - Attestation I have personally seen and examined this patient.: Yes I have fully participated in the care of the patient.: Yes I have reviewed all pertinent clinical information, including history, physical exam and plan: Yes Notes (Text): Patient was seen and examined with certified medical assistant .Agreed with resident assessment and plan. 51Y Finnish M with PMH of HTN, DM, Hep C s/p tx with Harvoni, esophageal varcies, hypersplenism who came to the ED with fever for the past 3 days, patient was treated with broad spectrum antibiotics, Fever resolved quickly, Procalcitonin level was normal, cultures remain negative, there was no obvious source of infection.The etiology of fever was most likley viral.ID has recommended to discontinue antibiotics.Patient is feeling good and does not want to stay in the hospital.He will be discharged home and will follow up with PCP Management plan was discussed in detail with patient and daughter who is at bed side. Education was provided.
--- NOTE | 2016-10-17 18:42 | CP.PCM.PN ---
Subjective - Date & Time of Evaluation Date of Evaluation: 10/17/16 Time of Evaluation: 14:30 - Subjective Subjective: Infectious Disease Follow Up: October 17, 2016 51 yo [place] male with Hypertension, Diabetes Mellitus, Hepatitis C, Esophageal Varices, and hypersplenism with fevers for the past 3 days. Subjective fevers and chills. No other specific issues. Fever as high as 102.9 F here in hospital during this admission. Cultures negative to date. He makes no other complaints. Temperature up to 100.0 F in the past 24 hours. Still no bowel movements. Objective - Vital Signs/Intake and Output Vital Signs (last 24 hours): Temp Pulse Resp BP Pulse Ox 98.3 F 56 L 18 156/86 H 100 10/17/16 06:00 10/17/16 10:47 10/17/16 06:00 10/17/16 10:47 10/17/16 06:00 Intake and Output: 10/17/16 10/17/16 06:59 18:59 Intake Total 120 800 Balance 120 800 - Labs Labs: 10/17/16 06:15 10/17/16 06:15 PT 13.4 Seconds (9.9-11.8) H 10/13/16 19:50 INR 1.24 (0.93-1.08) H 10/13/16 19:50 APTT 26.9 Seconds (23.7-30.8) 10/13/16 19:50 - Constitutional Appears: Non-toxic, No Acute Distress, Chronically Ill - Head Exam Head Exam: ATRAUMATIC, NORMOCEPHALIC - Eye Exam Eye Exam: EOMI, PERRL Pupil Exam: NORMAL ACCOMODATION, PERRL - ENT Exam ENT Exam: Mucous Membranes Moist, Normal External Ear Exam, TM's Normal Bilaterally - Neck Exam Neck Exam: Full ROM, Normal Inspection - Respiratory Exam Respiratory Exam: Clear to Ausculation Bilateral, NORMAL BREATHING PATTERN. absent: Rales, Rhonchi, Wheezes - Cardiovascular Exam Cardiovascular Exam: REGULAR RHYTHM, RRR, +S1, +S2 - GI/Abdominal Exam GI & Abdominal Exam: Soft, Normal Bowel Sounds. absent: Distended, Tenderness - Extremities Exam Extremities Exam: Full ROM, Normal Inspection - Neurological Exam Neurological Exam: Alert, Awake, CN II-XII Intact, Oriented x3 - Psychiatric Exam Psychiatric exam: Normal Affect, Normal Mood - Skin Skin Exam: Intact, Normal Color Assessment and Plan - Assessment and Plan (Free Text) Assessment: 51 yo [place] male with extensive past medical history with hypertension, diabetes mellitus, Heptitis C, hypersplenism, pancytopenia, and cirrhosis presenting with fevers. Fevers up to 102.9 F during this hospitalization. Chest X-ray negative, Urinalysis negative, and negative rapid flu assay. Patient started on Vancomycin and Zosyn at this time. King cultures sent. Patient is more vulnerable given his liver cirrhosis, poorly controlled diabetes mellitus, and obesity. Continue antibiotics and await cultures. Cannot rule out a viral syndrome. Still with fevers withing the past 24 hours up to 100.0 F. Chest abdominal X- ray given lack of bowel movements. Cultures negative. Most likely a viral syndrome than bacterial. Can stop antibiotics on discharge. Thank you for allowing me to participate in the care of the patient, we will follow with you.
[2016-10-20 00:27] LABS: BRUCELLA IGG 0.24 (()); BRUCELLA IGM 0.09 (())
== END 2016-10-17 16:28 | disposition home or self-care (01) | DRG 866 ==
LOC: ED 18:39 → ERH 21:20 → 3RNO 23:41
PROVIDERS: ADMIT Hospitalist; ATTEND Internal Medicine
DX: B34.9 Viral infection, unspecified (principal); R50.9 Fever, unspecified; D61.818 Other pancytopenia; E11.65 Type 2 diabetes mellitus with hyperglycemia; I85.00 Esophageal varices without bleeding; K74.60 Unspecified cirrhosis of liver; I10 Essential (primary) hypertension; D73.1 Hypersplenism; B19.20 Unspecified viral hepatitis C without hepatic coma; E66.9 Obesity, unspecified; D50.9 Iron deficiency anemia, unspecified; K59.00 Constipation, unspecified; Z87.891 Personal history of nicotine dependence; Z80.42 Family history of malignant neoplasm of prostate

== ENCOUNTER 2016-11-23 10:54 | Day surgery (SDC) | payer BC, OTHER ==
[2016-11-15 12:29] VITALS: BMI 38.7
[2016-11-23] MEDS ORDERED: Lactated Ringer's 1,000 ML IV SCH (11:50)
[2016-11-23] MEDS ORDERED: Propofol 10 mg/ml Inj (20 ML) ONE (12:25)
[2016-11-23 14:11] VITALS: PULSE 54; TEMP 98.3; O2SAT 99
[2016-11-23 14:21] VITALS: BP 154/89; RESP 19
== END 2016-11-23 16:47 | disposition home or self-care (01) ==
LOC: ENDO 10:54
PROVIDERS: ATTEND Internal Medicine
DX: K74.60 Unspecified cirrhosis of liver (principal); B19.20 Unspecified viral hepatitis C without hepatic coma; I85.10 Secondary esophageal varices without bleeding; K29.50 Unspecified chronic gastritis without bleeding; E11.9 Type 2 diabetes mellitus without complications; I10 Essential (primary) hypertension
CPT/HCPCS: 43239; 43244; 88305; 88342; J2001; J2704; J3010; J7040; J7120

== ENCOUNTER 2017-01-16 07:08 | Day surgery (SDC) | payer BC, OTHER ==
[2016-11-15 12:29] VITALS: BMI 38.7
[2017-01-16 08:00] VITALS: O2SAT 99
[2017-01-16] MEDS ORDERED: Propofol 10 mg/ml Inj (20 ML) ONE (08:03)
[2017-01-16] MEDS ORDERED: Sodium Chloride 0.9% 1,000 ML IV SCH (08:45)
[2017-01-16 09:20] VITALS: BP 134/72; PULSE 50; RESP 16; TEMP 97.8
== END 2017-01-16 09:54 | disposition home or self-care (01) ==
LOC: ENDO 07:08
PROVIDERS: ATTEND Internal Medicine
DX: I85.00 Esophageal varices without bleeding (principal); K29.70 Gastritis, unspecified, without bleeding; K76.6 Portal hypertension; K31.89 Other diseases of stomach and duodenum; E11.9 Type 2 diabetes mellitus without complications; I10 Essential (primary) hypertension; Z79.899 Other long term (current) drug therapy
CPT/HCPCS: 43235; 82948; J2001; J2704; J3010; J7040 ×2